=== PATIENT | female | born 1930 | race Caucasian/White ===

== ENCOUNTER → 2018-01-25 | Outpatient (CLI) | payer MEDICARE, BC, OTHER | END | disposition home or self-care (01) | LOC: HKI 11:27 | DX: M16.11 Unilateral primary osteoarthritis, right hip (principal); I10 Essential (primary) hypertension; K21.9 Gastro-esophageal reflux disease without esophagitis; Z96.651 Presence of right artificial knee joint; Z88.0 Allergy status to penicillin | CPT/HCPCS: 73502; 73562-50 ==

== ENCOUNTER → 2018-02-08 | Outpatient (CLI) | payer BC, MEDICARE | END | disposition home or self-care (01) | LOC: HKI 11:36 | DX: Z01.818 Encounter for other preprocedural examination (principal); M16.11 Unilateral primary osteoarthritis, right hip; Z88.0 Allergy status to penicillin; Z88.2 Allergy status to sulfonamides | CPT/HCPCS: G0463 ==

== ENCOUNTER 2018-02-18 05:43 | Inpatient (IN) | payer BC, MEDICARE, OTHER ==
[2018-02-18] MEDS: TRANEXAMIC ACID 1,000 MG in D5W 100 ML AT INCISION X1 IVPB (06:00)
[2018-02-18] MEDS: CLINDAMYCIN 900 MG/D5W (PMX) 50 ML IVPB (06:00)
[2018-02-18] MEDS: TRANEXAMIC ACID 1,000 MG in D5W 100 ML AT CLOSURE X1 IVPB (06:00)
[2018-02-18] MEDS: DEXAMETHASONE 4 MG/ML 1 ML INJ IV (06:55)
[2018-02-18] MEDS: ACETAMINOPHEN 1000 MG/100 ML IVPB IV (06:56)
[2018-02-18] MEDS: LACTATED RINGER'S 1,000 ML IV ×2 (06:57→14:24)
[2018-02-18] MEDS ORDERED: CLINDAMYCIN 600 MG/50 ML D5W IVPB IVPB (07:00)
[2018-02-18] MEDS ORDERED: EPHEDrine SULFATE 50 MG/5 ML SYG (07:00)
[2018-02-18] MEDS ORDERED: ACETAMINOPHEN 1000 MG/100 ML IVPB (07:00)
[2018-02-18] MEDS: BACITRACIN 50000 UNITS INJ (07:27)
[2018-02-18] MEDS: POLYMYXIN B 500000 UNIT INJ (07:29)
[2018-02-18] MEDS ORDERED: FENTAnyl 50 MCG/ML VIAL (07:55)
[2018-02-18] MEDS: ALBUMIN HUMAN 5% 250 ML IV (08:00)
[2018-02-18] MEDS ORDERED: PROPOFOL 100 ML (08:39)
[2018-02-18] MEDS ORDERED: ONDANSETRON 4 MG INJ (08:39)
[2018-02-18] MEDS ORDERED: DEXAMETHASONE 4 MG/ML 1 ML INJ (08:39)
[2018-02-18] MEDS ORDERED: METOCLOPRAMIDE 10 MG INJ (08:39)
[2018-02-18] MEDS ORDERED: PHENYLephrine (100 MCG/ML) 5ML SYG (08:51)
[2018-02-18] MEDS ORDERED: PHENYLephrine 10 MG INJ (08:52)
[2018-02-18] MEDS ORDERED: ACETAMINOPHEN 500 MG TAB PO (09:00)
[2018-02-18] MEDS ORDERED: NALOXONE (0.4 MG/ML) INJ IV ×2 (09:00→10:00)
[2018-02-18] MEDS ORDERED: FENTAnyl 50 MCG/ML VIAL IV ×2 (09:00)
[2018-02-18] MEDS ORDERED: hydrALAzine 20 MG INJ IV (09:00)
[2018-02-18] MEDS ORDERED: OXYCODONE/ACETAMINOPHEN (5/325) TAB PO (09:00)
[2018-02-18] MEDS ORDERED: MEPERIDINE 25 MG INJ IV (09:00)
[2018-02-18] MEDS ORDERED: HYDROmorphONE 0.5 MG/0.5 ML SYG IV (09:00)
[2018-02-18] MEDS ORDERED: NALBUPHINE HCL (10 MG/1 ML) INJ IV (09:00)
[2018-02-18] MEDS ORDERED: ONDANSETRON 4 MG INJ IV ×3 (09:00→10:00)
[2018-02-18] MEDS ORDERED: EPHEDrine SULFATE 50 MG/5 ML SYG IV ×2 (09:00→15:21)
[2018-02-18] MEDS ORDERED: LABETALOL HCL 20MG INJ IV (09:00)
[2018-02-18] MEDS ORDERED: HYDROmorphONE 1 MG/5 ML IV SYRINGE IV ×2 (09:00)
[2018-02-18] MEDS ORDERED: METOCLOPRAMIDE 10 MG INJ IV (09:00)
[2018-02-18] MEDS: GABAPENTIN 100 MG CAP PO ×3 (09:00→20:24)
[2018-02-18] MEDS ORDERED: DIPHENHYDRAMINE 50 MG INJ IV ×3 (09:00→10:00)
[2018-02-18] MEDS ORDERED: ROPIVACAINE 0.5 % 30 ML VIAL (09:09)
[2018-02-18] MEDS ORDERED: oxyCODONE 5 MG TAB PO ×2 (10:00)
[2018-02-18] MEDS ORDERED: BETHANECHOL 25 MG TAB PO (10:00)
[2018-02-18] MEDS ORDERED: NACL 0.9% 3 ML SYG IV (10:00)
[2018-02-18] MEDS: SOD CHLORIDE 0.9% 1,000 ML IV (10:00)
[2018-02-18] MEDS ORDERED: NA PHOSPHATE/BIPHOS 133 ML ENEMA PR (10:00)
[2018-02-18] MEDS: DOCUSATE SODIUM 100 MG CAP PO (10:34)
[2018-02-18] MEDS: ASPIRIN (EC) 325 MG TAB PO (10:35)
[2018-02-18] MEDS: FERROUS SULFATE (EC) 325 MG TAB PO ×2 (14:17→20:24)
[2018-02-18] MEDS: MELOXICAM 7.5 MG TAB PO (14:18)
[2018-02-18] MEDS: ONDANSETRON 4 MG INJ IV ×3 (14:22→23:25)
[2018-02-18] MEDS: VANCOMYCIN 1 GM (PMX) 250 ML IVPB (17:33)
[2018-02-18] MEDS: HYDROCODONE/APAP (5/325) TAB PO (19:45)
[2018-02-18] MEDS: ATORVASTATIN 10 MG TAB PO (20:24)
[2018-02-18] MEDS: LATANOPROST 0.005% 2.5 ML OPH BOTH EYES (21:00)
[2018-02-19] MEDS: LACTATED RINGER'S 1,000 ML IV ×2 (01:39→14:30)
[2018-02-19 05:07] LABS: ADD MAN DIFF? NO
[2018-02-19 05:15] LABS: HEMATOCRIT 21.5 % (37.0-47.0); HEMOGLOBIN 7.1 g/dl (12.0-16.0); LYMPHOCYTES # 0.8 10^3/ul (0.8-2.9); LYMPHOCYTES % 10.1 % (15.0-51.0); MEAN CORPUSCULAR HEMOGLOBIN 30.9 pg (29.0-33.0); MEAN CORPUSCULAR VOLUME 93.5 fl (82.0-101.0); MEAN PLATELET VOLUME 9.5 fl (7.4-10.4); MONOCYTE # 0.6 10^3/ul (0.3-0.9); MONOCYTES % 7.4 % (0.0-11.0); NEUTROPHIL # 6.7 10^3/ul (1.6-7.5); NEUTROPHILS % 82.1 % (39.0-77.0); PLATELET COUNT 185 10^3/UL (140-415); RED CELL DISTRIBUTION WIDTH 13.3 % (11.5-14.5)
[2018-02-19 05:15] LABS: WHITE BLOOD COUNT 8.1 10^3/ul (4.8-10.8)
[2018-02-19 05:30] LABS: ANION GAP 4 (5-13); BLOOD UREA NITROGEN 25 mg/dl (7-20); CALCIUM 8.5 mg/dl (8.4-10.2); CARBON DIOXIDE 23 mmol/L (21-31); CHLORIDE 112 mmol/L (97-110); CREATININE 1.33 mg/dl (0.44-1.00); GLUCOSE 138 mg/dl (70-220); SODIUM 139 mmol/L (135-144)
[2018-02-19 05:38] LABS: POTASSIUM 4.8 mmol/L (3.5-5.1)
[2018-02-19] MEDS: VANCOMYCIN 1 GM (PMX) 250 ML IVPB (05:38)
[2018-02-19] MEDS: PANTOPRAZOLE (EC) 40 MG TAB PO (05:38)
[2018-02-19] MEDS: ONDANSETRON 4 MG INJ IV (05:39)
[2018-02-19] MEDS: HYDROCODONE/APAP (5/325) TAB PO (05:43)
[2018-02-19] MEDS ORDERED: NON-FORMULARY/PATIENT OWN MED (Omeprazole* 20 MG) PO (09:00)
[2018-02-19] MEDS ORDERED: ASPIRIN (EC) 325 MG TAB PO (09:00)
[2018-02-19] MEDS ORDERED: FERROUS FUMARATE (SR) TAB PO (09:00)
[2018-02-19] MEDS: MULTIVITAMINS THERAPEUTIC TAB PO (09:01)
[2018-02-19] MEDS: DOCUSATE SODIUM 100 MG CAP PO ×2 (09:01→20:16)
[2018-02-19] MEDS: LOSARTAN 25 MG TAB PO (09:01)
[2018-02-19] MEDS: FERROUS SULFATE (EC) 325 MG TAB PO ×3 (09:01→20:16)
[2018-02-19] MEDS: ASPIRIN (EC) 81 MG TAB PO (09:01)
[2018-02-19] MEDS: GABAPENTIN 100 MG CAP PO ×3 (09:02→20:16)
[2018-02-19] MEDS: MELOXICAM 7.5 MG TAB PO (09:02)
[2018-02-19] MEDS: CHOLECALCIFEROL 400 UNITS TAB PO (09:02)
[2018-02-19 10:50] LABS: IMMEDIATE SPIN CROSSMATCH 1 1
[2018-02-19] MEDS: FUROSEMIDE 20 MG TAB PO (12:25)
[2018-02-19] MEDS: ATORVASTATIN 10 MG TAB PO (20:16)
[2018-02-19] MEDS: LATANOPROST 0.005% 2.5 ML OPH BOTH EYES (20:23)
[2018-02-20] MEDS: LACTATED RINGER'S 1,000 ML IV ×2 (03:11→15:30)
[2018-02-20 05:10] LABS: ADD MAN DIFF? NO
[2018-02-20 05:11] LABS: WHITE BLOOD COUNT 7.2 10^3/ul (4.8-10.8)
[2018-02-20 05:11] LABS: BASOPHILS % 0.3 % (0.0-2.0); EOSINOPHILS # 0.1 10^3/ul (0.0-0.5); EOSINOPHILS % 1.3 % (0.0-7.0); HEMATOCRIT 25.8 % (37.0-47.0); HEMOGLOBIN 8.3 g/dl (12.0-16.0); LYMPHOCYTES # 1.5 10^3/ul (0.8-2.9); LYMPHOCYTES % 20.9 % (15.0-51.0); MEAN CORPUSCULAR HEMOGLOBIN 30.6 pg (29.0-33.0); MEAN CORPUSCULAR HGB CONC 32.2 g/dl (32.0-37.0); MEAN CORPUSCULAR VOLUME 95.2 fl (82.0-101.0); MEAN PLATELET VOLUME 9.5 fl (7.4-10.4); MONOCYTE # 0.6 10^3/ul (0.3-0.9); MONOCYTES % 8.2 % (0.0-11.0); NEUTROPHIL # 4.9 10^3/ul (1.6-7.5); NEUTROPHILS % 68.9 % (39.0-77.0); PLATELET COUNT 191 10^3/UL (140-415); RED BLOOD COUNT 2.71 10^6/ul (4.20-5.40); RED CELL DISTRIBUTION WIDTH 14.2 % (11.5-14.5)
[2018-02-20 05:39] LABS: ANION GAP 5 (5-13); BLOOD UREA NITROGEN 28 mg/dl (7-20); CALCIUM 8.5 mg/dl (8.4-10.2); CARBON DIOXIDE 25 mmol/L (21-31); CHLORIDE 109 mmol/L (97-110); CREATININE 1.57 mg/dl (0.44-1.00); GLUCOSE 97 mg/dl (70-220); POTASSIUM 4.6 mmol/L (3.5-5.1); SODIUM 139 mmol/L (135-144)
[2018-02-20] MEDS: PANTOPRAZOLE (EC) 40 MG TAB PO (06:26)
[2018-02-20] MEDS: MULTIVITAMINS THERAPEUTIC TAB PO (09:06)
[2018-02-20] MEDS: FERROUS SULFATE (EC) 325 MG TAB PO ×3 (09:06→20:22)
[2018-02-20] MEDS: MELOXICAM 7.5 MG TAB PO (09:06)
[2018-02-20] MEDS: GABAPENTIN 100 MG CAP PO ×3 (09:06→20:22)
[2018-02-20] MEDS: DOCUSATE SODIUM 100 MG CAP PO ×2 (09:06→20:22)
[2018-02-20] MEDS: CHOLECALCIFEROL 400 UNITS TAB PO (09:06)
[2018-02-20] MEDS: ASPIRIN (EC) 81 MG TAB PO (09:06)
[2018-02-20] MEDS: LOSARTAN 25 MG TAB PO (09:07)
[2018-02-20] MEDS: FUROSEMIDE 20 MG TAB PO (09:07)
[2018-02-20] MEDS: oxyCODONE 5 MG TAB PO (11:32)
[2018-02-20] MEDS: LATANOPROST 0.005% 2.5 ML OPH BOTH EYES (20:22)
[2018-02-20] MEDS: ATORVASTATIN 10 MG TAB PO (20:22)
[2018-02-20] MEDS: MAGNESIUM HYDROXIDE 30ML CUP PO (20:24)
[2018-02-21 05:34] LABS: ADD MAN DIFF? NO
[2018-02-21 05:40] LABS: BASOPHILS % 0.3 % (0.0-2.0); EOSINOPHILS # 0.2 10^3/ul (0.0-0.5); EOSINOPHILS % 2.3 % (0.0-7.0); HEMATOCRIT 25.4 % (37.0-47.0); HEMOGLOBIN 8.2 g/dl (12.0-16.0); LYMPHOCYTES # 1.7 10^3/ul (0.8-2.9); LYMPHOCYTES % 23.7 % (15.0-51.0); MEAN CORPUSCULAR HEMOGLOBIN 30.3 pg (29.0-33.0); MEAN CORPUSCULAR HGB CONC 32.3 g/dl (32.0-37.0); MEAN CORPUSCULAR VOLUME 93.7 fl (82.0-101.0); MEAN PLATELET VOLUME 9.5 fl (7.4-10.4); MONOCYTE # 0.6 10^3/ul (0.3-0.9); MONOCYTES % 7.9 % (0.0-11.0); NEUTROPHIL # 4.5 10^3/ul (1.6-7.5); NEUTROPHILS % 65.4 % (39.0-77.0); PLATELET COUNT 198 10^3/UL (140-415); RED BLOOD COUNT 2.71 10^6/ul (4.20-5.40); RED CELL DISTRIBUTION WIDTH 14.1 % (11.5-14.5)
[2018-02-21 06:21] LABS: ANION GAP 5 (5-13); BLOOD UREA NITROGEN 29 mg/dl (7-20); CALCIUM 8.3 mg/dl (8.4-10.2); CARBON DIOXIDE 23 mmol/L (21-31); CHLORIDE 111 mmol/L (97-110); CREATININE 1.44 mg/dl (0.44-1.00); GLUCOSE 111 mg/dl (70-220); POTASSIUM 4.3 mmol/L (3.5-5.1); SODIUM 139 mmol/L (135-144)
[2018-02-21] MEDS: PANTOPRAZOLE (EC) 40 MG TAB PO (06:39)
[2018-02-21] MEDS: LOSARTAN 25 MG TAB PO (08:54)
[2018-02-21] MEDS: FUROSEMIDE 20 MG TAB PO (08:55)
[2018-02-21] MEDS: DOCUSATE SODIUM 100 MG CAP PO ×2 (08:57→21:14)
[2018-02-21] MEDS: FERROUS SULFATE (EC) 325 MG TAB PO ×3 (08:58→21:14)
[2018-02-21] MEDS: ASPIRIN (EC) 81 MG TAB PO (08:58)
[2018-02-21] MEDS: MELOXICAM 7.5 MG TAB PO (08:59)
[2018-02-21] MEDS: GABAPENTIN 100 MG CAP PO ×3 (08:59→21:14)
[2018-02-21] MEDS: CHOLECALCIFEROL 400 UNITS TAB PO (08:59)
[2018-02-21] MEDS: MULTIVITAMINS THERAPEUTIC TAB PO (08:59)
[2018-02-21] MEDS: oxyCODONE 5 MG TAB PO ×2 (09:13→16:59)
[2018-02-21] MEDS: LATANOPROST 0.005% 2.5 ML OPH BOTH EYES (21:14)
[2018-02-21] MEDS: ATORVASTATIN 10 MG TAB PO (21:14)
[2018-02-22] MEDS: PANTOPRAZOLE (EC) 40 MG TAB PO (06:03)
[2018-02-22] MEDS: CHOLECALCIFEROL 400 UNITS TAB PO (08:58)
[2018-02-22] MEDS: MULTIVITAMINS THERAPEUTIC TAB PO (08:58)
[2018-02-22] MEDS: GABAPENTIN 100 MG CAP PO ×3 (08:58→21:42)
[2018-02-22] MEDS: FERROUS SULFATE (EC) 325 MG TAB PO ×3 (08:58→21:42)
[2018-02-22] MEDS: ASPIRIN (EC) 81 MG TAB PO (08:58)
[2018-02-22] MEDS: SENNA/DOCUSATE NA (8.6MG/50MG) TAB PO (08:59)
[2018-02-22] MEDS: MELOXICAM 7.5 MG TAB PO (09:17)
[2018-02-22 09:50] LABS: ADD MAN DIFF? NO
[2018-02-22 09:55] LABS: WHITE BLOOD COUNT 8.4 10^3/ul (4.8-10.8)
[2018-02-22 09:55] LABS: BASOPHILS % 0.2 % (0.0-2.0); EOSINOPHILS # 0.2 10^3/ul (0.0-0.5); EOSINOPHILS % 1.9 % (0.0-7.0); HEMATOCRIT 25.6 % (37.0-47.0); HEMOGLOBIN 8.1 g/dl (12.0-16.0); LYMPHOCYTES # 1.5 10^3/ul (0.8-2.9); LYMPHOCYTES % 18.1 % (15.0-51.0); MEAN CORPUSCULAR HEMOGLOBIN 30.1 pg (29.0-33.0); MEAN CORPUSCULAR HGB CONC 31.6 g/dl (32.0-37.0); MEAN CORPUSCULAR VOLUME 95.2 fl (82.0-101.0); MEAN PLATELET VOLUME 9.1 fl (7.4-10.4); MONOCYTE # 0.7 10^3/ul (0.3-0.9); MONOCYTES % 7.8 % (0.0-11.0); NEUTROPHILS % 71.5 % (39.0-77.0); PLATELET COUNT 202 10^3/UL (140-415); RED BLOOD COUNT 2.69 10^6/ul (4.20-5.40); RED CELL DISTRIBUTION WIDTH 13.9 % (11.5-14.5)
[2018-02-22 10:18] LABS: ANION GAP 7 (5-13); BLOOD UREA NITROGEN 26 mg/dl (7-20); CALCIUM 8.3 mg/dl (8.4-10.2); CARBON DIOXIDE 23 mmol/L (21-31); CHLORIDE 104 mmol/L (97-110); CREATININE 1.39 mg/dl (0.44-1.00); GLUCOSE 133 mg/dl (70-220); POTASSIUM 4.4 mmol/L (3.5-5.1); SODIUM 134 mmol/L (135-144)
[2018-02-22] MEDS: BISACODYL 10 MG SUPP PR (14:28)
[2018-02-22 19:16] LABS: CREATINE KINASE 107 IU/L (23-200)
[2018-02-22 19:29] LABS: CK INDEX 0.2; CK-MB 0.25 ng/ml (0.0-2.4); TROPONIN-I < 0.012 ng/ml (0.000-0.120)
[2018-02-22] MEDS: LATANOPROST 0.005% 2.5 ML OPH BOTH EYES (21:42)
[2018-02-22] MEDS: ATORVASTATIN 10 MG TAB PO (21:42)
[2018-02-23 00:06] LABS: CREATINE KINASE 81 IU/L (23-200)
[2018-02-23 00:19] LABS: CK INDEX 0.4; TROPONIN-I < 0.012 ng/ml (0.000-0.120)
[2018-02-23 05:05] LABS: ADD MAN DIFF? NO
[2018-02-23 05:11] LABS: BASOPHILS % 0.2 % (0.0-2.0); EOSINOPHILS # 0.3 10^3/ul (0.0-0.5); EOSINOPHILS % 4.7 % (0.0-7.0); HEMATOCRIT 24.8 % (37.0-47.0); HEMOGLOBIN 7.9 g/dl (12.0-16.0); LYMPHOCYTES # 1.1 10^3/ul (0.8-2.9); LYMPHOCYTES % 16.6 % (15.0-51.0); MEAN CORPUSCULAR HEMOGLOBIN 30.7 pg (29.0-33.0); MEAN CORPUSCULAR HGB CONC 31.9 g/dl (32.0-37.0); MEAN CORPUSCULAR VOLUME 96.5 fl (82.0-101.0); MEAN PLATELET VOLUME 9.4 fl (7.4-10.4); MONOCYTE # 0.6 10^3/ul (0.3-0.9); NEUTROPHIL # 4.4 10^3/ul (1.6-7.5); NEUTROPHILS % 68.9 % (39.0-77.0); PLATELET COUNT 207 10^3/UL (140-415); RED BLOOD COUNT 2.57 10^6/ul (4.20-5.40); RED CELL DISTRIBUTION WIDTH 13.7 % (11.5-14.5)
[2018-02-23 05:11] LABS: WHITE BLOOD COUNT 6.3 10^3/ul (4.8-10.8)
[2018-02-23] MEDS: PANTOPRAZOLE (EC) 40 MG TAB PO (05:53)
[2018-02-23 06:00] LABS: ANION GAP 3 (5-13); BLOOD UREA NITROGEN 26 mg/dl (7-20); CALCIUM 8.4 mg/dl (8.4-10.2); CARBON DIOXIDE 26 mmol/L (21-31); CHLORIDE 107 mmol/L (97-110); GLUCOSE 110 mg/dl (70-220); POTASSIUM 4.5 mmol/L (3.5-5.1); SODIUM 136 mmol/L (135-144)
[2018-02-23] MEDS: ASPIRIN (EC) 81 MG TAB PO (08:33)
[2018-02-23] MEDS: MELOXICAM 7.5 MG TAB PO (08:33)
[2018-02-23] MEDS: GABAPENTIN 100 MG CAP PO ×2 (08:33→13:20)
[2018-02-23] MEDS: FERROUS SULFATE (EC) 325 MG TAB PO ×2 (08:33→13:20)
[2018-02-23] MEDS: MULTIVITAMINS THERAPEUTIC TAB PO (08:33)
[2018-02-23] MEDS: oxyCODONE 5 MG TAB PO (09:34)
[2018-02-23] MEDS: CHOLECALCIFEROL 400 UNITS TAB PO (09:34)
== END 2018-02-23 16:00 | DRG 470 ==
LOC: REC 05:43 → MS1 11:26
PROC: 0SR903Z Replacement of Right Hip Joint with Ceramic Synthetic Substitute, Open Approach (ICD-10-PCS; principal; 2018-02-18 07:30)
PROC: 30233N1 Transfusion of Nonautologous Red Blood Cells into Peripheral Vein, Percutaneous Approach (ICD-10-PCS; 2018-02-18 07:51)
DX: M16.11 Unilateral primary osteoarthritis, right hip (principal); Z95.0 Presence of cardiac pacemaker; K21.9 Gastro-esophageal reflux disease without esophagitis; I10 Essential (primary) hypertension; E78.5 Hyperlipidemia, unspecified; E55.9 Vitamin D deficiency, unspecified; D64.9 Anemia, unspecified; Z79.82 Long term (current) use of aspirin; R07.89 Other chest pain
CPT/HCPCS: 36430; 71045; 73530; 80048; 82550; 82553; 84484; 85025; 86850; 86900; 86901; 86920; 87081; 88304; 88311; 93005; 97110; 97116; 97161; 97166; 97530; 97535

== ENCOUNTER → 2018-03-08 | Outpatient (CLI) | payer MEDICARE | END | disposition home or self-care (01) | LOC: HKI 11:15 | DX: Z47.1 Aftercare following joint replacement surgery (principal); Z96.641 Presence of right artificial hip joint ==

== ENCOUNTER → 2018-03-29 | Outpatient (CLI) | payer MEDICARE | END | disposition home or self-care (01) | LOC: HKI 11:32 | DX: Z09 Encounter for follow-up examination after completed treatment for conditions other than malignant neoplasm (principal); Z96.641 Presence of right artificial hip joint | CPT/HCPCS: 73502 ==

== ENCOUNTER → 2018-05-31 | Outpatient (CLI) | payer MEDICARE, BC | END | disposition home or self-care (01) | LOC: HKI 11:20 | DX: Z09 Encounter for follow-up examination after completed treatment for conditions other than malignant neoplasm (principal); Z96.641 Presence of right artificial hip joint | CPT/HCPCS: 73502 ==